=== PATIENT | female | born 1955 | race Caucasian/White ===

== ENCOUNTER 2022-12-18 09:57 | Observation (INO) | payer MEDICARE, OTHER ==
[2022-12-18] MEDS ORDERED: Ondansetron 4 MG/2 ML SDV IVPUSH ONE (10:24)
[2022-12-18] MEDS ORDERED: Morphine 2 MG/ML SYRINGE ONE (10:28)
[2022-12-18] MEDS ORDERED: Morphine 2 MG/ML SYRINGE IVPUSH ONE ×2 (10:28→10:45)
[2022-12-18 10:41] LABS: BASOPHILS ABSOLUTE AUTO 0.02 K/uL (0.00-0.20); BASOPHILS PERCENT AUTO 0.2 % (0.0-2.0); EOSINOPHILS ABSOLUTE AUTO 0.22 K/uL (0.00-0.50); EOSINOPHILS PERCENT AUTO 2.7 % (0.0-5.0); HEMATOCRIT 35.7 % (34.0-46.0); HEMOGLOBIN 10.9 g/dL (11.7-15.5); LYMPHOCYTES ABSOLUTE AUTO 1.99 K/uL (0.50-3.50); LYMPHOCYTES PERCENT AUTO 24.6 % (10.0-50.0); MEAN CORPUSCULAR HEMOGLOBIN 24.7 pg (28.2-33.3); MEAN CORPUSCULAR HGB CONC 30.5 g/dL (31.7-36.0); MONOCYTES ABSOLUTE AUTO 0.81 K/uL (0.00-1.00); NEUTROPHILS ABSOLUTE AUTO 5.04 K/uL (1.40-7.00); NEUTROPHILS PERCENT AUTO 62.5 % (45.0-80.0); PLATELET COUNT,PLT 317 K/uL (150-350); RED BLOOD CELL COUNT 4.41 M/uL (3.77-5.09); RED CELL DISTRIBUTION WIDTH 17.3 % (11.2-14.1); WHITE BLOOD CELL COUNT,WBC 8.1 K/uL (4.0-10.2)
[2022-12-18 10:55] LABS: ALANINE AMINOTRANSFERASE,ALT 41 U/L (12-78); ALBUMIN 3.4 g/dL (3.4-5.0); ALKALINE PHOSPHATASE 64 IU/L (46-116); ANION GAP 8.6 meq/L (7-15); ASPARTATE AMNIOTRANSFERASE,AST 27 U/L (15-37); BILIRUBIN TOTAL 0.2 mg/dL (0.2-1.0); BLOOD UREA NITROGEN,BUN 22 mg/dL (7-18); CALCIUM 8.9 mg/dL (8.5-10.1); CARBON DIOXIDE,CO2 28.4 mmol/L (21.0-32.0); CHLORIDE,CL 102 mmol/L (98-107); CREATININE 0.97 mg/dL (0.51-1.17); GLUCOSE RANDOM 176 mg/dL (70-99); POTASSIUM,K 3.8 mmol/L (3.5-5.1); PROTEIN TOTAL,TP 7.3 g/dL (6.4-8.2); SODIUM,NA 139 mmol/L (136-145)
[2022-12-18 10:56] LABS: ESTIMATED GFR 64 mL/min (>=60)
[2022-12-18] MEDS ORDERED: Orphenadrine 60 MG/2 ML Inj IV ONE (11:04)
[2022-12-18 12:42] LABS: APPEARANCE,URINE CLOUDY; BACTERIA,URINE RARE /HPF (NONE TO FEW); BILIRUBIN,URINE NEGATIVE (NEGATIVE); COLOR,URINE DARK YELLOW; EPITHELIAL CELLS,URINE FEW /LPF; GLUCOSE,URINE NEGATIVE (NEGATIVE); KETONES,URINE NEGATIVE (NEGATIVE); LEUKOCYTE ESTERASE,URINE SMALL (NEGATIVE); NITRITE,URINE NEGATIVE (NEGATIVE); OCCULT BLOOD,URINE NEGATIVE (NEGATIVE); PH,URINE 5.5 (5.0-9.0); PROTEIN,URINE 30 mg/dL (NEGATIVE); RBC,URINE 0-5 /HPF; UROBILINOGEN,URINE 0.2 E.U./dL (0.2-1.0)
[2022-12-18] MEDS ORDERED: traMADol 50 MG Tab PO PRN (13:14)
[2022-12-18] MEDS ORDERED: 50% Dextrose in Water 50 ML Syringe IVPUSH PRN (13:15)
[2022-12-18] MEDS ORDERED: Glucagon,Human Recombinant 1 MG Vial IM PRN (13:15)
[2022-12-18] MEDS: Ketorolac 15 MG/ML SDV IVPUSH SCH ×2 (13:46→19:33)
[2022-12-18] MEDS: Acetaminophen 325 MG Tab PO SCH ×2 (16:12→21:35)
[2022-12-18] MEDS: busPIRone 15 MG Tab PO SCH (17:21)
[2022-12-18] MEDS: Docusate Sodium 100 MG Cap PO PRN (17:43)
[2022-12-18] MEDS ORDERED: metFORMIN 500 MG Tab PO SCH (18:00)
[2022-12-18] MEDS ORDERED: Insulin Lispro 100 Units/ML 3 ML Vial ONE (18:21)
[2022-12-18] MEDS ORDERED: Non-Formulary Medication 1 Each (Simvastatin [Simvastatin] 40 MG Tablet) PO SCH (20:00)
[2022-12-18] MEDS ORDERED: Insulin Glarg,Human.Rec.Analog 100 Unit/ML SUBCUT SCH (20:00)
[2022-12-18] MEDS: Sodium Chloride 0.9% 10 ML Syringe FLUSH PRN (21:36)
[2022-12-18] MEDS ORDERED: Melatonin 3 MG Tab PO PRN (22:50)
[2022-12-18] MEDS ORDERED: Take Home: traMADol 50 MG, 4 Tab Pack PO ONE (23:00)
[2022-12-19] MEDS: Ketorolac 15 MG/ML SDV IVPUSH SCH (02:00)
[2022-12-19] MEDS: Sodium Chloride 0.9% 10 ML Syringe FLUSH PRN (02:01)
[2022-12-19] MEDS ORDERED: Acetaminophen 325 MG Tab PO PRN (03:23)
[2022-12-19] MEDS ORDERED: Ketorolac 15 MG/ML SDV IVPUSH PRN (03:23)
[2022-12-19] MEDS: busPIRone 15 MG Tab PO SCH (07:21)
[2022-12-19] MEDS: Docusate Sodium 100 MG Cap PO PRN (07:27)
[2022-12-19 07:35] LABS: BASOPHILS ABSOLUTE AUTO 0.02 K/uL (0.00-0.20); BASOPHILS PERCENT AUTO 0.2 % (0.0-2.0); EOSINOPHILS ABSOLUTE AUTO 0.21 K/uL (0.00-0.50); EOSINOPHILS PERCENT AUTO 2.2 % (0.0-5.0); HEMATOCRIT 35.1 % (34.0-46.0); HEMOGLOBIN 10.8 g/dL (11.7-15.5); LYMPHOCYTES ABSOLUTE AUTO 2.68 K/uL (0.50-3.50); MEAN CORPUSCULAR HEMOGLOBIN 25.1 pg (28.2-33.3); MEAN CORPUSCULAR HGB CONC 30.8 g/dL (31.7-36.0); MEAN CORPUSCULAR VOLUME 81.6 fL (84.0-98.0); MONOCYTES ABSOLUTE AUTO 0.79 K/uL (0.00-1.00); MONOCYTES PERCENT AUTO 8.2 % (2.0-14.0); NEUTROPHILS ABSOLUTE AUTO 5.88 K/uL (1.40-7.00); NEUTROPHILS PERCENT AUTO 61.4 % (45.0-80.0); PLATELET COUNT,PLT 359 K/uL (150-350); RED CELL DISTRIBUTION WIDTH 17.4 % (11.2-14.1); WHITE BLOOD CELL COUNT,WBC 9.6 K/uL (4.0-10.2)
[2022-12-19] MEDS ORDERED: Losartan 50 MG Tab PO SCH (08:00)
[2022-12-19] MEDS ORDERED: Propranolol 80 MG Cap.ER PO SCH (08:00)
[2022-12-19] MEDS ORDERED: Glimepiride 2 MG Tab PO SCH (08:00)
[2022-12-19] MEDS ORDERED: DULoxetine 30 MG Cap PO SCH (08:00)
[2022-12-19] MEDS ORDERED: Omeprazole 20 MG Cap.CR PO SCH (08:00)
[2022-12-19] MEDS ORDERED: amLODIPine 5 MG Tab PO SCH (08:00)
[2022-12-19] MEDS ORDERED: Non-Formulary Medication 1 Each (Duloxetine [Cymbalta] 60 MG Cap) PO SCH (08:00)
[2022-12-19] MEDS ORDERED: ARIPiprazole 10 MG Tab PO SCH (08:00)
[2022-12-19] MEDS ORDERED: Hydrochlorothiazide 25 MG Tab PO SCH (08:00)
[2022-12-19 08:08] LABS: CALCIUM 8.9 mg/dL (8.5-10.1); CREATININE 1.13 mg/dL (0.51-1.17); EST CRCL DRUG DOSING (CG) 42.88 mL/min; POTASSIUM,K 3.9 mmol/L (3.5-5.1)
[2022-12-19] MEDS ORDERED: Take Home: traMADol 50 MG, 4 Tab Pack PO ONE (09:34)
== END 2022-12-19 10:50 | disposition home or self-care (01) ==
LOC: LL.ED 09:57 → LL.MS 12:34
PROVIDERS: ADMIT Emergency Medicine; ATTEND Emergency Medicine
DX: S20.229A Contusion of unspecified back wall of thorax, initial encounter (principal); M54.9 Dorsalgia, unspecified; E78.00 Pure hypercholesterolemia, unspecified; I10 Essential (primary) hypertension; E11.9 Type 2 diabetes mellitus without complications; E66.9 Obesity, unspecified; Z96.41 Presence of insulin pump (external) (internal); Z79.4 Long term (current) use of insulin; Z79.84 Long term (current) use of oral hypoglycemic drugs; Z79.82 Long term (current) use of aspirin; Z79.899 Other long term (current) drug therapy; Z88.8 Allergy status to other drugs, medicaments and biological substances; Z91.030 Bee allergy status; Z88.6 Allergy status to analgesic agent; W10.8XXA Fall (on) (from) other stairs and steps, initial encounter
CPT/HCPCS: 36415; 70450; 71250; 72125; 74176; 80048; 80053; 81001; 82947; 85025; 87086; 96374; 96375; 96376; 99285-25; A9270-GY; G0378; J1815-GY; J1885; J2270; J2360; J2405; J3490